=== PATIENT | male | born 1960 | race Caucasian/White ===

== ENCOUNTER 2019-05-10 08:30 | Outpatient (CLI) | payer MEDICAID, SELFPAY ==
[2019-05-10 09:01] LABS: Abs Immature Grans 0.01 k/cumm (0.0-0.09); Absolute Basophil Count 0.06 k/cumm (0.0-0.2); Absolute Eosinophil Count 0.24 k/cumm (0.0-0.7); Absolute Lymphocyte Count 1.75 k/cumm (1.2-3.4); Absolute Monocyte Count 0.51 k/cumm (0.11-0.7); Absolute Neutrophil Count 2.98 k/cumm (1.2-6.7); Basophils % 1.1; Eosinophils % 4.3; HCT 43.3 % (40.0-50.0); HGB 14.7 g/dL (13.5-17.5); Immature Grans % 0.2; Lymphocytes % 31.5; Mean Corp. HGB Concentration 33.9 g/dL (32.0-36.0); Mean Corpuscular Volume 91.4 fL (80-95); Mean Platelet Volume 9.6 fL (8.0-11.0); Monocytes % 9.2; Neutrophils % 53.7; Platelet Count 301 x1000/uL (130-400); RBC 4.74 m/cumm (4.50-6.00); RBC Distribution Width 14.1 % (11.8-14.1); White Blood Cell Count 5.55 k/cumm (4.4-10.8)
== END 2019-05-10 08:50 ==
PROVIDERS: PCP General Practice; Visit Provider Dermatology
DX: Z79.899 Other long term (current) drug therapy (principal)
CPT/HCPCS: 36415; 85025

== ENCOUNTER 2020-03-27 10:33 | Outpatient (CLI) | payer MEDICAID, SELFPAY ==
[2020-03-27 15:02] LABS: Abs Immature Grans 0.01 k/cumm (0.0-0.09); Absolute Basophil Count 0.06 k/cumm (0.0-0.2); Absolute Lymphocyte Count 1.59 k/cumm (1.2-3.4); Absolute Monocyte Count 0.53 k/cumm (0.11-0.7); Absolute Neutrophil Count 2.57 k/cumm (1.2-6.7); Basophils % 1.2; Eosinophils % 5.9; HCT 40.7 % (40.0-50.0); HGB 13.9 g/dL (13.5-17.5); Immature Grans % 0.2 %; Lymphocytes % 31.4; Mean Corp. HGB Concentration 34.2 g/dL (32.0-36.0); Mean Corpuscular Hemoglobin 31.7 pg (27.0-33.0); Mean Corpuscular Volume 92.9 fL (80-95); Mean Platelet Volume 9.4 fL (8.0-11.0); Monocytes % 10.5; Neutrophils % 50.8; Platelet Count 263 x1000/uL (130-400); RBC 4.38 m/cumm (4.50-6.00); RBC Distribution Width 12.9 % (11.8-14.1); White Blood Cell Count 5.06 k/cumm (4.4-10.8)
[2020-03-27 15:55] LABS: ALT 61 U/L (16-63); AST 32 U/L (15-37); Albumin 3.6 g/dL (3.4-5.0); Alkaline Phosphatase 96 U/L (46-116); Anion Gap 7.2 mmol/L (3-11); BUN 22 mg/dL (7-18); Bilirubin, Total 0.4 mg/dL (0.2-1.0); CO2 27.8 mmol/L (21.0-32.0); CREATININE 0.98 mg/dL (0.70-1.30); Calcium 8.6 mg/dL (8.5-10.1); Chloride 102 mmol/L (98-107); Glucose 91 mg/dL (74-106); Potassium 4.2 mmol/L (3.5-5.1); Sodium 137 mmol/L (136-145); Total Protein 6.6 g/dL (6.4-8.2)
== END 2020-03-27 10:53 ==
PROVIDERS: Visit Provider Dermatology
DX: Z79.899 Other long term (current) drug therapy (principal)
CPT/HCPCS: 36415; 80053; 85025

== ENCOUNTER 2020-05-28 17:00 | Outpatient (REF) | payer MEDICAID, SELFPAY ==
[2020-05-28 21:05] LABS: BUN 23 mg/dL (7-18); CREATININE 0.86 mg/dL (0.70-1.30); Calcium 9.1 mg/dL (8.5-10.1); Calculated LDL 138 mg/dL (<100); Chloride 103 mmol/L (98-107); Cholesterol 214 mg/dL (<200); Glucose 93 mg/dL (74-106); HDL Cholesterol 46 mg/dL (40-60); Sodium 139 mmol/L (136-145); Triglyceride 150 mg/dL (<150)
[2020-05-28 21:11] LABS: Hemoglobin A1C 5.1 % (3.8-5.6)
[2020-06-01 10:22] LABS: Hepatitis C Ab w Rflx HCV PCR Negative (Negative)
== END 2020-05-28 17:20 ==
LOC: NCHCN 17:00
PROVIDERS: PCP Family Medicine; Visit Provider Family Medicine
DX: Z13.9 Encounter for screening, unspecified (principal); I10 Essential (primary) hypertension
CPT/HCPCS: 80048; 80061; 86803; 83036

== ENCOUNTER 2020-06-02 02:20 | Outpatient (CLI) | payer MEDICAID, SELFPAY ==
[2020-06-02 08:56] LABS: HCT 43.4 % (40.0-50.0); HGB 14.6 g/dL (13.5-17.5); Mean Corp. HGB Concentration 33.6 g/dL (32.0-36.0); Mean Corpuscular Volume 92.1 fL (80-95); Mean Platelet Volume 9.4 fL (8.0-11.0); Platelet Count 326 x1000/uL (130-400); RBC 4.71 m/cumm (4.50-6.00); RBC Distribution Width 13.1 % (11.8-14.1); White Blood Cell Count 5.11 k/cumm (4.4-10.8)
[2020-06-02 10:01] LABS: ALT 51 U/L (16-63); AST 25 U/L (15-37); Albumin 4.2 g/dL (3.4-5.0); Alkaline Phosphatase 93 U/L (46-116); Bilirubin, Direct 0.14 mg/dL (0.00-0.20); Bilirubin, Total 0.6 mg/dL (0.2-1.0); Total Protein 7.2 g/dL (6.4-8.2)
[2020-06-02 18:28] LABS: PSA, Screening 0.5 ng/mL (0.0-4.5)
[2020-06-05 08:46] LABS: Testosterone, Total 370 ng/dL (240-950)
== END 2020-06-02 02:40 ==
PROVIDERS: PCP Family Medicine; Visit Provider Family Medicine
DX: E23.0 Hypopituitarism (principal); Z13.9 Encounter for screening, unspecified
CPT/HCPCS: 36415; 80076; 84153; 84403; 85027

== ENCOUNTER 2020-10-04 13:35 | Emergency (ER) | payer MEDICAID, SELFPAY ==
[2020-10-04] VITALS (10 sets, daily range): BP systolic 125–147; BP diastolic 86–102; PULSE 67–89; RESP 14–21; TEMP 36.4; O2SAT 94–97
--- NOTE | 2020-10-04 13:30 | RT.EKG_ITS ---
APPROVED REPORT Exam: Resting ECG Patient Location: E HR:73 bpm ECG Measurements Heart Rate 73 AXIS IL 207 P 29 QRSd 106 QRS 25 QT 384 T 96 QTc 423 Conclusion Sinus rhythm...normal P axis, V-rate 60- 99 Inferior infarct, acute Stemi
--- NOTE | 2020-10-04 13:45 | DI.RAD_ITS ---
EXAM: XR PORTABLE CHEST AP CLINICAL HISTORY: cp/STEMI. TECHNIQUE: 2D digital imaging was performed. COMPARISON: No exams were available for comparison FINDINGS: Chest leads in place. Heart size minimally prominent. Mediastinum is not widened. Lungs are clear. No infiltrates nor pleural effusions. No pneumothorax IMPRESSION: No acute pulmonary findings on this portable AP view of the chest. DATA REPOSITORY: RADIATION DOSE DELIVERED:
[2020-10-04] MEDS: Ondansetron 4 MG/2 ML VIAL IVP (13:59)
--- NOTE | 2020-10-04 13:59 | W.ED.GENAD ---
Discharge Plan Disposition Patient Disposition: [facility] Condition: Improving Discharge Details Clinical Impression: Acute ST elevation myocardial infarction (STEMI) of inferior wall Primary Care Provider: Gennaro Hess ED Provider: Andrew Zheng Home Meds and New Rx's Prescriptions: No Action diclofenac sodium 75 MG tablet,delayed release (DR/EC) 75 mg PO BID RF: 0 lisinopril 40 MG tablet 40 mg PO DAILY RF: 0 testosterone cyp, micro (bulk) 5 GM powder 5 gm Miscellaneous DAILY RF: 0 hydrochlorothiazide 25 MG tablet 25 mg PO DAILY RF: 0 atorvastatin 20 mg tablet 20 mg PO DAILY RF: 0 naltrexone 50 mg tablet 25 mg PO DAILY RF: 0 bupropion HCl 150 mg tablet extended release 24 hr 150 mg PO QAM RF: 0 aspirin 81 mg tablet,delayed release (DR/EC) 81 mg PO DAILY RF: 0 Medical Decision Making 60-year-old male, former smoker, positive family history of coronary artery disease, history of hypertension and hyperlipidemia. States that for approximately 1 week after walking his dog he would feel heartburn and chest pain. Resolved with rest. This morning the pain became constant while at rest, he was nauseated and vomited once. He states it feels as if a sledgehammer hit him in the sternum. Patient arrives to the ER afebrile with a blood pressure 147/88, pulse 67, 96% sat on room air. His initial EKG reveals inferior STEMI with lateral ST segment depressions. Patient placed on a crocheter hand, IV access established. Screening labs obtained. Patient had a 81 mg aspirin at home, he was given additional 162 mg as well as 2mg Morphine. Results of the labs: White count 7, hematocrit 43, platelets 299, BUN 23, creatinine 0.8, troponin 0.46 Portable CXR: No acute pulmonary process Case discussed with on-call cardiology at [facility]. Patient excepted in transfer to the service of Dr. Vicente. Will start heparin drip, administer ticagrelor as per cardioloy recommendations. Patient remained stable. Pain improved from approximately 6 out of 10 to 1 out of 10 after morphine 2 mg x 2. After discussion of transport time, [facility] [place] and requested thrombolysis with tenecteplase. Patient was consented for the procedure and he was given tenecteplase 50 mg. Lab Data Lab results reviewed: Yes I reviewed the patient's lab results. Labs: Laboratory Results - last 24 hr 10/04/20 10/04/20 13:45 13:45 WBC 7.45 RBC 4.68 Hgb 14.6 Hct 43.3 MCV 92.5 MCH 31.2 MCHC 33.7 RDW 12.8 Plt Count 299 MPV 9.5 Immature Gran % 0.4 Neutrophils % 72.7 Lymphocytes % 16.5 Monocytes % 7.2 Eosinophils % 2.3 Basophils % 0.9 Nucleated RBC % 0 Absolute Neutrophils 5.41 Absolute Lymphocytes 1.23 Absolute Monocytes 0.54 Absolute Eosinophils 0.17 Absolute Basophils 0.07 PT 9.9 INR 1.0 APTT 22.2 HPI General Mode of arrival: ambulatory. Date/Time Provider Initiated Documentation: 10/04/20 13:44. Limitations to Documentation: no limitations. Information obtained by: patient. History of Present Illness 60 year old M presents to the emergency department with the chief complaint of Chest pain, described as moderate, Quality is described as dull and constant, and is localized to the chest. Patient reports no radiation. Patient started experiencing this day(s) and it has been constant. Rest improves symptom(s), Movement worsens symptoms . Patient notes chest pain, nausea/vomiting and shortness of breath; denies syncope and weakness. Patient did receive the following treatments prior to arrival, other (81 mg aspirin at home) Related Data Home Medications Medication Instructions Recorded Confirmed diclofenac sodium 75 mg PO BID tab-cap 05/21/18 10/04/20 lisinopril 40 mg PO DAILY tab-cap 05/21/18 10/04/20 testosterone cyp, micro (bulk) 5 gm MISCELLANEOUS DAILY 05/21/18 10/04/20 hydrochlorothiazide 25 mg PO DAILY 05/23/18 10/04/20 aspirin 81 mg tablet,delayed 81 mg PO DAILY 09/29/20 10/04/20 release atorvastatin 20 mg tablet 20 mg PO DAILY 09/29/20 10/04/20 bupropion HCl 150 mg 24 hr tablet, 150 mg PO QAM 09/29/20 10/04/20 extended release naltrexone 50 mg tablet 25 mg PO DAILY tab 09/29/20 10/04/20 Allergies Allergy/AdvReac Type Severity Reaction Status Date / Time No Known Drug Allergies Allergy Unverified 10/04/20 13:45 General Stated Complaint: Chest Pain EVA: 2 Review of Systems Narrative: Had central chest pain with exertion that resolved with rest this week. Constant chest pain this morning while at rest, nauseated, vomited once. No cough. No recent travel. 8 systems reviewed and otherwise negative [facility] Medical History Alcohol use Arthritis Basal cell carcinoma BPH (benign prostatic hyperplasia) HTN (hypertension) Hyperlipidemia Hypogonadism in male Melanoma Overactive bladder Psoriasis Sensorineural hearing loss of both ears Social History Smoking/Tobacco Use Status: Former Tobacco Use Smoking risk assessment performed?: Yes Drug use: Rarely Exam Narrative Exam Narrative: GEN: awake, alert, oriented 3. Pleasant, well groomed, interactive. HEAD: Normocephalic, atraumatic ENT: Mucous membranes moist, External ear exam unremarkable EYES: PERRL, EOMI NECK: Full ROM, no JARED, no menigismus CHEST/RESP: Nontender, clear to auscultation bilateral, no wheeze/rhonchi/rales CARDIOVASCULAR: RRR, no murmur, rub georgette. 2+ Rad pulse bilateral ABDOMEN: Soft, nontender, no mass. +Bowel sounds EXT: Full ROM, no edema, no rash Neuro: Grossly normal neurologic exam, conversant, interactive. Psych: Speech fluent, thoughts congruent, affect normal Course Vital Signs Vital signs: Vital Signs Temperature 36.4 C L 10/04/20 13:40 Pulse 67 10/04/20 13:40 Respiratory Rate 16 10/04/20 13:40 Blood Pressure 147/88 H 10/04/20 13:40 Pulse Oximetry 96 10/04/20 13:40 Temperature 36.4 C L 10/04/20 13:40 Temperature Source Oral 10/04/20 13:40 Pulse 67 10/04/20 13:40 Respiratory Rate 16 10/04/20 13:40 Respiratory Effort Non-Labored 10/04/20 13:40 Blood Pressure 147/88 H 10/04/20 13:40 Blood Pressure Position Supine 10/04/20 13:40 Pulse Oximetry 96 10/04/20 13:40 Oxygen Delivery Method Room Air 10/04/20 13:40 Oxygen Flow Rate 0 10/04/20 13:40 Pain Level 7 10/04/20 13:40 Critical Care Time Critical Care Time Critical Care Time: Yes Total Critical Care Time: 30 Attestation: Review of records, beside management, discussion with managed services consultant
[2020-10-04] MEDS: Normal Saline 1,000 ML 125 ML IV (14:00)
[2020-10-04] MEDS: Aspirin 81 MG CHEW 162 MG PO (14:01)
--- NOTE | 2020-10-04 14:02 | NUR.NOTE ---
Nursing Note: pt has spoken with girlfriend, Lor who is aware of care plan and probable transfer. Pt has [employer] in ER parking lot, hospital security aware. Pt has asked fro cell phone from car- security to retrieve it and lock car. Norge will be stored in security office.
[2020-10-04 14:03] LABS: Abs Immature Grans 0.03 10^3/uL (0.0-0.06); Absolute Basophil Count 0.07 10^3/uL (0.0-0.2); Absolute Eosinophil Count 0.17 10^3/uL (0.0-0.7); Absolute Lymphocyte Count 1.23 10^3/uL (1.2-3.4); Absolute Monocyte Count 0.54 10^3/uL (0.1-0.8); Absolute Neutrophil Count 5.41 10^3/uL (1.2-6.7); Basophils % 0.9; Eosinophils % 2.3; HCT 43.3 % (40.0-50.0); HGB 14.6 g/dL (13.5-17.5); Immature Grans % 0.4; Lymphocytes % 16.5; MCH 31.2 pg (27.0-33.0); MCHC 33.7 % (32.0-36.0); MCV 92.5 fL (80-95); MPV 9.5 fL (8.0-11.0); Monocytes % 7.2; Neutrophils % 72.7; Nucleated RBC 0 %; Platelet Count 299 10^3/uL (130-400); RBC 4.68 10^6/uL (4.36-5.78); RDW 12.8 % (11.8-14.1); RDW-SD 43.4 fL; WBC 7.45 10^3/uL (4.4-10.8)
--- NOTE | 2020-10-04 14:08 | NUR.NOTE ---
radiology at bedside for portable chest x-ray:
[2020-10-04 14:11] LABS: PTT Activated 22.2 sec (21.0-27.5); Prothrombin Time 9.9 sec (9.3-11.0)
--- NOTE | 2020-10-04 14:14 | DI.VRAD_ITS ---
PROCEDURE INFORMATION: Exam: XR Chest, 1 View Exam date and time: 10/04/2020 1:48 PM Age: 60 years old Clinical indication: Chest pain TECHNIQUE: Imaging protocol: XR of the chest Views: 1 view. COMPARISON: No relevant prior studies available. FINDINGS: Lungs: Right lung volume is low with elevation of right hemidiaphragm. There is mild chronic reticular interstitial thickening. There is no focal consolidation or pleural effusion. Pleural space: Unremarkable. No pleural effusion. No pneumothorax. Heart/Mediastinum: Unremarkable. No cardiomegaly. Bones/joints: Unremarkable. IMPRESSION: No acute pulmonary process. Dictated and Authenticated by: Marcus Dominguez MD. Ordering:ROBYN Morales MD
[2020-10-04 14:15] LABS: ALT 80 U/L (16-63); AST 38 U/L (15-37); Albumin 4.3 g/dL (3.4-5.0); Alkaline Phosphatase 100 U/L (46-116); Anion Gap 6.2 mmol/L (3-11); BUN 20 mg/dL (7-18); Bilirubin, Total 0.4 mg/dL (0.2-1.0); CO2 30.8 mmol/L (21.0-32.0); CREATININE 1.16 mg/dL (0.70-1.30); Calcium 8.9 mg/dL (8.5-10.1); Chloride 101 mmol/L (98-107); Glucose 116 mg/dL (74-106); Magnesium 2.2 mg/dL (1.8-2.4); Potassium 3.7 mmol/L (3.5-5.1); Sodium 138 mmol/L (136-145); Total Protein 7.6 g/dL (6.4-8.2)
--- NOTE | 2020-10-04 14:15 | NUR.NOTE ---
Nursing Note: Pt's keys in security office. Cell phone was not located by security, pt aware. Pt's wallet (brown, with $1 ho, several medical and credit cards) bagged with clothing and sent with pt. Pt retains his black colored watch on left wrist. Sneakers bagged and sent as well.
[2020-10-04 14:16] LABS: Troponin I 0.46 ng/mL (<0.06)
[2020-10-04] MEDS: Ticagrelor 90 MG TAB 180 MG PO (14:19)
--- NOTE | 2020-10-04 14:27 | NUR.NOTE ---
pt awake and alert. vs stable. 1/10 on pain scale:
[2020-10-04] MEDS: Tenecteplase 50 MG KIT IVP (14:40)
[2020-10-04 14:43] LABS: NT-proBNP 106 pg/mL (<300)
== END 2020-10-04 14:52 | disposition short-term general hospital (02) ==
PROVIDERS: Emergency Provider Emergency Medicine; PCP Family Medicine
DX: I21.19 ST elevation (STEMI) myocardial infarction involving other coronary artery of inferior wall (principal); R11.2 Nausea with vomiting, unspecified; Z82.49 Family history of ischemic heart disease and other diseases of the circulatory system; I10 Essential (primary) hypertension; Z87.891 Personal history of nicotine dependence
CPT/HCPCS: 80053; 93005; 96361; 96365; 96375; 96376; 99291; 71045; 83735; 83880; 84484; 85025; 85610; 85730; 93010; J2405; J3101; J3490

== ENCOUNTER 2021-01-04 15:01 | Outpatient (REF) | payer MEDICAID, SELFPAY ==
[2021-01-04 16:22] LABS: Calculated LDL 39 mg/dL (<100); Cholesterol 107 mg/dL (<200); HDL Cholesterol 45 mg/dL (40-60); Triglyceride 115 mg/dL (<150)
== END 2021-01-04 15:02 | disposition home or self-care (01) ==
LOC: NCHCN 15:01
PROVIDERS: PCP Family Medicine; Visit Provider Family Medicine
DX: E78.5 Hyperlipidemia, unspecified (principal)
CPT/HCPCS: 80061

== ENCOUNTER 2021-09-30 12:00 | Day surgery (SDC) | payer MEDICAID, SELFPAY ==
[2021-09-30] VITALS (22 sets, daily range): BP systolic 85–109; BP diastolic 45–64; PULSE 55–77; RESP 10–23; TEMP 36.1–36.9; O2SAT 94–99; BMI 29.4
--- NOTE | 2021-09-30 12:09 | ED.GENADUL_ITS ---
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 Access called to state that there was a patient in a car with uncontrolled bleeding. Nursing removed the patient from the vehicle and placed on a stretcher and noted to have a right leg wound. Right sneaker and floor of car noted to be saturated with blood. Patient denies any other injuries other than right leg. Unsure of his tetanus status. Tourniquet applied at bedside by nursing as there was report of pulsatile bleeding from patient. His vitals are within normal limits. Removal of dressing while tourniquet in place noted extensive tissue injury down to subcutaneous tissue and potentially muscle but no pulsatile bleeding. Portions of tendon L distal medial leg visible and appear intact. He has normal plantar and dorsiflexion of the foot. He has normal right DP and PT pulses. He has no obvious contamination or obvious bony injury on exam. Will obtain hemoglobin and refer for right tib-fib x-ray. Will give a dose of IV tylenol. Hemoglobin 12. X-ray notes soft tissue injury but no underlying bony injury. Case discussed with orthopedics Dr. Anderson who reviewed imaging and as there is no evidence of bony injury, no orthopedic intervention indicated - recommends discussion with general surgery as pt may need a wound vac. Case discussed with Dr. Early who will take patient to the OR for washout with plan for admission for dressing changes and likely plan for wound VAC placement. Patient dose of penicillin G potassium ordered for coverage for Clostridium as potential for contaminated wound. Patient is agreeable with plan. Pt had soft BP's (90s/50s) prior to transfer to OR. He was given morphine for pain which may have been contributing. His bleeding was controlled and dressing remained clean and dry. Medical Records Medical records reviewed: Yes I reviewed the patient's medical records. Imaging Data Radiologic Study: Radiologist's impression: XR Right Tibia and Fibula Exam date and time: 09/30/2021 12:25 PM Age: 61 years old Clinical indication: Injury or trauma; Other: Tractor injury; Laceration; Lower leg; Foreign body involvement not specified; Prior surgery; Surgery date: 6+ months; Surgery type: S/P tibial FX with 3 screws putin. ; Patient HX: S/P metal bucket of tractor ran into leg causing a tear in his leg. Right in the area of his surgery. TECHNIQUE: Imaging protocol: XR Right tibia and fibula. Views: 2 views. COMPARISON: No relevant images were readily available for comparison purposes. FINDINGS: Bones/joints: Fixation screws are seen within the mid tibia in the region of an old fracture. There is also a chronic appearing fracture of the mid fibula. No acute fracture or dislocation. Soft tissues: Subcutaneous emphysema and soft tissue irregularity likely traumatic in nature. IMPRESSION: Evidence of soft tissue injury without underlying bony involvement. Lab Data Lab results reviewed: Yes I reviewed the patient's lab results. Labs: Laboratory Tests Range/Units 09/30/21 09/30/21 09/30/21 12:05 12:05 12:05 WBC (4.4-10.8) 10^3/uL 6.54 RBC (4.36-5.78) 10^6/uL 4.01 L Hgb (13.5-17.5) g/dL 12.2 L Hct (40.0-50.0) % 37.7 L MCV (80-95) fL 94.0 MCH (27.0-33.0) pg 30.4 MCHC (32.0-36.0) % 32.4 RDW (11.8-14.1) % 13.8 Plt Count (130-400) 10^3/uL 292 MPV (8.0-11.0) fL 9.4 Immature Gran % 0.3 Neutrophils % 58.5 Lymphocytes % 27.5 Monocytes % 7.8 Eosinophils % 5.0 Basophils % 0.9 Nucleated RBC % % 0 Absolute Neutrophils (1.2-6.7) 10^3/uL 3.82 Absolute Lymphocytes (1.2-3.4) 10^3/uL 1.80 Absolute Monocytes (0.1-0.8) 10^3/uL 0.51 Absolute Eosinophils (0.0-0.7) 10^3/uL 0.33 Absolute Basophils (0.0-0.2) 10^3/uL 0.06 Sodium (136-145) mmol/L 139 Potassium (3.5-5.1) mmol/L 4.0 Chloride (98-107) mmol/L 103 Carbon Dioxide (21.0-32.0) mmol/L 27.7 Anion Gap (3-11) mmol/L 8.3 BUN (7-18) mg/dL 29 H Creatinine (0.70-1.30) mg/dL 0.9 Estimated GFR/1.73 m2 (mL/min/1.73m2) >= 60.00 Glucose (74-106) mg/dL 145 H Calcium (8.5-10.1) mg/dL 8.6 COVID-19 Source SARS-CoV-2 (PCR) (Negative) Patient ABO/Rh O Positive Antibody Screen NEGATIVE Range/Units 09/30/21 14:07 WBC (4.4-10.8) 10^3/uL RBC (4.36-5.78) 10^6/uL Hgb (13.5-17.5) g/dL Hct (40.0-50.0) % MCV (80-95) fL MCH (27.0-33.0) pg MCHC (32.0-36.0) % RDW (11.8-14.1) % Plt Count (130-400) 10^3/uL MPV (8.0-11.0) fL Immature Gran % Neutrophils % Lymphocytes % Monocytes % Eosinophils % Basophils % Nucleated RBC % % Absolute Neutrophils (1.2-6.7) 10^3/uL Absolute Lymphocytes (1.2-3.4) 10^3/uL Absolute Monocytes (0.1-0.8) 10^3/uL Absolute Eosinophils (0.0-0.7) 10^3/uL Absolute Basophils (0.0-0.2) 10^3/uL Sodium (136-145) mmol/L Potassium (3.5-5.1) mmol/L Chloride (98-107) mmol/L Carbon Dioxide (21.0-32.0) mmol/L Anion Gap (3-11) mmol/L BUN (7-18) mg/dL Creatinine (0.70-1.30) mg/dL Estimated GFR/1.73 m2 (mL/min/1.73m2) Glucose (74-106) mg/dL Calcium (8.5-10.1) mg/dL COVID-19 Source Nasal/Nares SARS-CoV-2 (PCR) (Negative) Negative Patient ABO/Rh Antibody Screen HPI General Mode of arrival: wheelchair . Date/Time Provider Initiated Documentation: 09/30/21 12:08 . Limitations to Documentation: no limitations . Information obtained by: patient . HPI Narrative: Patient is a 61-year-old male w/ a h/o R tib/fib ORIF in the who presents with right leg injury that was sustained when hit with the moving and of a tractor while he was walking on the ground prior to arrival. Patient states he was walking and helping out a friend remove brush when moving a tractor came towards him and he tried to jump out of the way and a metal edge caught his right lower leg. He says there was a large amount of blood loss at the scene and in the car on the way here. Patient denies any other injuries. He is unsure of his tetanus status. Related Data Home Medications Medication Instructions Recorded Confirmed lisinopril 40 mg PO DAILY tab-cap 05/21/18 09/30/21 aspirin 81 mg tablet,delayed 81 mg PO DAILY 09/29/20 09/30/21 release atorvastatin 20 mg tablet 80 mg PO DAILY tab 12/18/20 09/30/21 metoprolol succinate 25 mg 25 mg PO DAILY #60 tab 12/18/20 09/30/21 tablet,extended release 24 hr ticagrelor 90 mg tablet 90 mg PO BID #180 tab 01/04/21 09/30/21 acetaminophen 325 mg capsule 975 mg PO ONCE PRN cap 03/25/21 06/17/21 cephalexin 500 mg PO Q12H 14 Days #28 tab 09/30/21 clindamycin HCl [Cleocin HCl] 300 mg PO Q6H 14 Days #56 cap 09/30/21 tramadol [Ultram] 50 mg PO Q6H PRN #14 tab 09/30/21 Previous Rx's Medication Instructions Recorded metoprolol succinate 25 mg 25 mg PO DAILY #60 tab 12/18/20 tablet,extended release 24 hr ticagrelor 90 mg tablet 90 mg PO BID #180 tab 01/04/21 cephalexin 500 mg PO Q12H 14 Days #28 tab 09/30/21 clindamycin HCl [Cleocin HCl] 300 mg PO Q6H 14 Days #56 cap 09/30/21 tramadol [Ultram] 50 mg PO Q6H PRN #14 tab 09/30/21 Allergies Allergy/AdvReac Type Severity Reaction Status Date / Time No Known Drug Allergies Allergy Unverified 03/25/21 09:39 General Stated Complaint: Laceration EVA: 3 Review of Systems All systems reviewed & are unremarkable except as noted in HPI and below Constitutional Constitutional: Reports as per HPI, Denies chills and Denies fever(s) Eyes Eyes: Denies blurry vision ENT Ears, Nose, Mouth, and Throat: Denies dizziness, Denies sore throat and Denies throat swelling Cardiovascular Cardiovascular: Denies chest pain and Denies dyspnea Respiratory Respiratory: Denies cough and Denies dyspnea Gastrointestinal Gastrointestinal: Denies abdominal pain, Denies diarrhea and Denies vomiting Genitourinary Genitourinary: Denies hematuria and Denies dysuria Musculoskeletal Musculoskeletal: Denies back pain and Denies numbness Integumentary/Breasts Skin/Breast: Denies lesions and Denies rash Neurologic Neurologic: Denies dizziness, Denies localized weakness and Denies numbness Allergic/Immunologic Allergic/Immunologic: Denies throat swelling PFSH Active Problem List Traumatic open wound of right lower leg (Acute) Sensorineural hearing loss of both ears (Acute) Medical History Alcohol use Arthritis Basal cell carcinoma BPH (benign prostatic hyperplasia) HTN (hypertension) Hyperlipidemia Hypogonadism in male Melanoma Overactive bladder Psoriasis ST elevation myocardial infarction (STEMI) of inferior wall Surgical History History of coronary artery stent placement Social History Smoking/Tobacco Use Status: Former Tobacco Use Smoking risk assessment performed?: Yes Alcohol Intake: current Alcohol Intake frequency: holidays/special occasions only Drug use: Never Substance use type: does not use What type of physical activity do you participate in: walking and weight lifting Duration: 60-90 minutes/day Frequency: daily Do you feel safe at home: Yes Do you feel safe in your relationship?: Yes Exam Const General: cooperative and no acute distress HENMT Head: normal to inspection Face and sinus: normal facial exam Eyes General: appearance normal, both eyes and all related structures Neck Neck: normal visual inspection and No submandibular swelling Lymphatic: no lymphadenopathy noted Chest Chest: normal inspection of the chest and no tenderness Resp Effort & Inspection: normal respiratory effort and able to speak in complete sentences Auscultation: clear to auscultation bilaterally Cardio Rate: regular rate Rhythm: regular rhythm GI Inspection: normal to inspection Palpation: soft, not firm, not rigid and nontender Auscultation: normal bowel sounds Skin General skin exam: no rashes or lesions noted Neuro General: patient alert, patient awake and patient oriented x3 Cognition: normal cognition Speech: speech normal Motor: muscle tone normal throughout Sensory Exam: no sensory deficits noted Extrem Ankle/foot/toe images: 1. Large gaping wound approximately 15x8cm on left anteromedial lower leg extending deep with subcutaneous tissue and potentially muscle and fascia. No pulsatile bleeding noted while tourniquet applied. Psych Appearance: grossly normal Mental Status: mental status grossly normal Speech and Movement: speech and movement normal Affect: normal affect Course Vital Signs Vital signs: Vital Signs Temperature 97.0 F L 09/30/21 12:01 Pulse 75 09/30/21 12:01 Respiratory Rate 18 09/30/21 12:01 Blood Pressure 109/64 09/30/21 12:01 Pulse Oximetry 99 09/30/21 12:01 Temperature 97.0 F L 09/30/21 12:01 Temperature Source Temporal Artery Scan 09/30/21 12:01 Pulse 75 09/30/21 12:01 Respiratory Rate 18 09/30/21 12:01 Blood Pressure 109/64 09/30/21 12:01 Blood Pressure Position Sitting 09/30/21 12:01 Pulse Oximetry 99 09/30/21 12:01 Oxygen Delivery Method Room Air 09/30/21 12:01 Oxygen Flow Rate 0 09/30/21 12:01 Pain Level 10 09/30/21 12:01
[2021-09-30 12:30] LABS: Abs Immature Grans 0.02 10^3/uL (0.0-0.06); Absolute Basophil Count 0.06 10^3/uL (0.0-0.2); Absolute Eosinophil Count 0.33 10^3/uL (0.0-0.7); Absolute Monocyte Count 0.51 10^3/uL (0.1-0.8); Absolute Neutrophil Count 3.82 10^3/uL (1.2-6.7); Basophils % 0.9; HCT 37.7 % (40.0-50.0); HGB 12.2 g/dL (13.5-17.5); Immature Grans % 0.3; Lymphocytes % 27.5; MCH 30.4 pg (27.0-33.0); MCHC 32.4 % (32.0-36.0); MPV 9.4 fL (8.0-11.0); Monocytes % 7.8; Neutrophils % 58.5; Nucleated RBC 0 %; Platelet Count 292 10^3/uL (130-400); RBC 4.01 10^6/uL (4.36-5.78); RDW 13.8 % (11.8-14.1); RDW-SD 47.8 fL; WBC 6.54 10^3/uL (4.4-10.8)
[2021-09-30 12:34] LABS: Anion Gap 8.3 mmol/L (3-11); BUN 29 mg/dL (7-18); CO2 27.7 mmol/L (21.0-32.0); CREATININE 0.9 mg/dL (0.70-1.30); Calcium 8.6 mg/dL (8.5-10.1); Chloride 103 mmol/L (98-107); Glucose 145 mg/dL (74-106); Sodium 139 mmol/L (136-145)
[2021-09-30] MEDS: Normal Saline 1,000 ML 1000 ML IV (12:40)
--- NOTE | 2021-09-30 12:45 | DI.RAD_ITS ---
Exam(s) XR TIB/FIB RT EXAM: XR TIB/FIB RT CLINICAL HISTORY: s/p metal tractor into R leg. TECHNIQUE: 2D digital imaging was performed. COMPARISON: CR RIGHT TIB/FIB from 03/11/2011 CR RIGHT TIB/FIB from 03/11/2011 CR LEFT KNEE 3 VIEW COMPLETE from 04/10/2017 CR LEFT KNEE 3 VIEW COMPLETE from 04/10/2017 FINDINGS: BONES: No acute fracture is present. Screws in distal 3rd of tibia, unchanged from prior. Mild defo rmity of adjacent region of the fibula, old healed fracture. No bony destructive lesion is seen. Deg enerative changes are noted at the knee. SOFT TISSUE: Posterior soft tissue laceration. No foreign body. IMPRESSION: Soft tissue laceration. No evidence of fracture. DATA REPOSITORY: RADIATION DOSE DELIVERED:
[2021-09-30] MEDS: ACETAMINOPHEN 1,000 MG/100 ML BTL 400 MG IVPB (13:01)
--- NOTE | 2021-09-30 13:24 | DI.VRAD_ITS ---
PROCEDURE INFORMATION: Exam: XR Right Tibia and Fibula Exam date and time: 09/30/2021 12:25 PM Age: 61 years old Clinical indication: Injury or trauma; Other: Tractor injury; Laceration; Lower leg; Foreign body involvement not specified; Prior surgery; Surgery date: 6+ months; Surgery type: S/P tibial FX with 3 screws putin. ; Patient HX: S/P metal bucket of tractor ran into leg causing a tear in his leg. Right in the area of his surgery. TECHNIQUE: Imaging protocol: XR Right tibia and fibula. Views: 2 views. COMPARISON: No relevant images were readily available for comparison purposes. FINDINGS: Bones/joints: Fixation screws are seen within the mid tibia in the region of an old fracture. There is also a chronic appearing fracture of the mid fibula. No acute fracture or dislocation. Soft tissues: Subcutaneous emphysema and soft tissue irregularity likely traumatic in nature. IMPRESSION: Evidence of soft tissue injury without underlying bony involvement. Dictated and Authenticated by: Tuan Novak MD. Ordering:LUIS M Marr MD
[2021-09-30 14:18] LABS: Source Nasal/Nares
--- NOTE | 2021-09-30 14:19 | W.PREOPHP ---
Date of service: 09/30/21 Time of Service: 14:19 Assessment and Plan Assessment and plan (1) Traumatic open wound of right lower leg: Status: Acute Assessment and plan: Mr. Nicholas is a pleasant 61 year old male with a traumatic laceration of his right medial lower extremity. There is muscle exposed and tendon. Xray shows 3 screws and no fractures. We discussed wash out of the wound with possible closure of some of the wound. He will most likely still have an open wound and will need daily dressing changes. We will give him antibiotics for 14 days to cover skin bacteria as well as clostredium, Will see if we can set up home health for him so he can have help with dressing changes as he lives alone. Risk, benefits and complications were reviewed with him and he wished to proceed. No guarantees were given or implied. Qualifiers: Encounter type: initial encounter Qualified Code(s): S81.801A - Unspecified open wound, right lower leg, initial encounter History of Present Illness Consults Consult date: 09/30/21 Requesting physician: Justa Palomares Narrative: Mr Nicholas is a pleasant 61 year old male who was helping out a friend out in the [facility] when the tractor started to role. He tried to junp out of the way but was not fast enough and his right lower extremity was slized open by a hook on the front railroad car loader. He had an injury to that leg when he was a kid and had 3 screws put in and had a skin graft placed. There was apparently a lot of blood in the car when the ER nurse went to help him out of the car. He has not had a lot of bleeding in the ER. He is on Ticagrelor and aspirin for an VT he had 1 year ago. He also has a history of a heart stent. Xray of his lower extremity did not show a fracture. [facility] was consulted who refused the case and said it was just a wound issue and to call general surgery. Review of Systems Constitutional Constitutional: Denies anorexia, Denies fatigue, Denies fever(s) and Denies headache(s) Eyes Eyes: Denies change in vision ENT Ears, Nose, Mouth, and Throat: Denies change in voice, Denies dysphagia, Denies headache(s) and Denies hoarseness Cardiovascular Cardiovascular: Reports as per HPI, Denies chest pain, Denies irregular heart rhythm, Denies palpitations and Denies dyspnea Respiratory Respiratory: Denies cough and Denies dyspnea Gastrointestinal Gastrointestinal: Reports system reviewed and no additional complaints, except as documented and Denies dysphagia Genitourinary Genitourinary: Reports system reviewed and no additional complaints, except as documented Musculoskeletal Musculoskeletal: Reports as per HPI Integumentary/Breasts Skin/Breast: Reports system reviewed and no additional complaints, except as documented Neurologic Neurologic: Reports system reviewed and no additional complaints, except as documented and Denies headache(s) Psychiatric Psychiatric: Reports system reviewed and no additional complaints, except as documented Endocrine Endocrine: Reports system reviewed and no additional complaints, except as documented, Denies fatigue and Denies palpitations [facility] Active Problem List Traumatic open wound of right lower leg (Acute) Sensorineural hearing loss of both ears (Acute) Medical History Alcohol use Arthritis Basal cell carcinoma BPH (benign prostatic hyperplasia) HTN (hypertension) Hyperlipidemia Hypogonadism in male Melanoma Overactive bladder Psoriasis ST elevation myocardial infarction (STEMI) of inferior wall Surgical History History of coronary artery stent placement Social History Smoking/Tobacco Use Status: Former Tobacco Use Smoking risk assessment performed?: Yes Alcohol Intake: current Alcohol Intake frequency: holidays/special occasions only Drug use: Never Substance use type: does not use What type of physical activity do you participate in: walking and weight lifting Duration: 60-90 minutes/day Frequency: daily Do you feel safe at home: Yes Do you feel safe in your relationship?: Yes Meds Allergies and Home Medications Allergies Allergy/AdvReac Type Severity Reaction Status Date / Time No Known Drug Allergies Allergy Unverified 03/25/21 09:39 Home Medications Medication Instructions Recorded Confirmed Type lisinopril 40 mg PO DAILY tab-cap 05/21/18 09/30/21 History aspirin 81 mg tablet,delayed 81 mg PO DAILY 09/29/20 09/30/21 History release atorvastatin 20 mg tablet 80 mg PO DAILY tab 12/18/20 09/30/21 History metoprolol succinate 25 mg 25 mg PO DAILY #60 tab 12/18/20 09/30/21 Rx tablet,extended release 24 hr ticagrelor 90 mg tablet 90 mg PO BID #180 tab 01/04/21 09/30/21 Rx acetaminophen 325 mg capsule 975 mg PO ONCE PRN cap 03/25/21 06/17/21 History Exam Const General: cooperative, comfortable and no acute distress Orientation: alert and oriented x3 HENMT Head: normocephalic and atraumatic Resp Effort & Inspection: normal respiratory effort Auscultation: clear to auscultation bilaterally Cardio Rate: regular rate Rhythm: regular rhythm Heart Sounds: no gallops, no murmurs and no rubs Extrem Right lower extremity: full ROM, normal capillary refill and lower leg Details: laceration Left lower extremity: normal to inspection, full ROM and normal capillary refill Ankle/foot/toe images: 1. large laceration with exposed muscle. Other: intact extension and flexion of his foot. Normal sensation to touch Results Labs Result diagrams: 09/30/21 12:05 09/30/21 12:05 Labs: Laboratory Results - last 24 hr 09/30/21 09/30/21 09/30/21 12:05 12:05 12:05 WBC 6.54 RBC 4.01 L Hgb 12.2 L Hct 37.7 L MCV 94.0 MCH 30.4 MCHC 32.4 RDW 13.8 Plt Count 292 MPV 9.4 Immature Gran % 0.3 Neutrophils % 58.5 Lymphocytes % 27.5 Monocytes % 7.8 Eosinophils % 5.0 Basophils % 0.9 Nucleated RBC % 0 Absolute Neutrophils 3.82 Absolute Lymphocytes 1.80 Absolute Monocytes 0.51 Absolute Eosinophils 0.33 Absolute Basophils 0.06 Sodium 139 Potassium 4.0 Chloride 103 Carbon Dioxide 27.7 Anion Gap 8.3 BUN 29 H Creatinine 0.9 Estimated GFR/1.73 m2 >= 60.00 Glucose 145 H Calcium 8.6 COVID-19 Source Patient ABO/Rh O Positive Antibody Screen NEGATIVE 09/30/21 14:07 WBC RBC Hgb Hct MCV MCH MCHC RDW Plt Count MPV Immature Gran % Neutrophils % Lymphocytes % Monocytes % Eosinophils % Basophils % Nucleated RBC % Absolute Neutrophils Absolute Lymphocytes Absolute Monocytes Absolute Eosinophils Absolute Basophils Sodium Potassium Chloride Carbon Dioxide Anion Gap BUN Creatinine Estimated GFR/1.73 m2 Glucose Calcium COVID-19 Source Nasal/Nares Patient ABO/Rh Antibody Screen Last Vital Signs Temp 97.0 F L 09/30/21 12:01 Pulse 62 09/30/21 14:00 Resp 15 09/30/21 14:10 BP 98/57 L 09/30/21 14:00 Pulse Ox 95 09/30/21 14:10
--- NOTE | 2021-09-30 14:20 | ANES.PREOP_ITS ---
General Info Date of Service Date Performed: 09/30/21 Height: 5 ft 10 in Weight: 92.986 kg Body Mass Index (BMI): 29.4 Surgical Procedure: Operation Date: 09/30/21 14:00 Proposed Procedures Side Surgeon p Debridement Right Francesca Early MD Meds Allergies and Home Medications Allergies Allergy/AdvReac Type Severity Reaction Status Date / Time No Known Drug Allergies Allergy Unverified 03/25/21 09:39 Home Medication Medication Instructions Recorded lisinopril 40 mg PO DAILY tab-cap 05/21/18 aspirin 81 mg tablet,delayed 81 mg PO DAILY 09/29/20 release atorvastatin 20 mg tablet 80 mg PO DAILY tab 12/18/20 metoprolol succinate 25 mg 25 mg PO DAILY #60 tab 12/18/20 tablet,extended release 24 hr ticagrelor 90 mg tablet 90 mg PO BID #180 tab 01/04/21 acetaminophen 325 mg capsule 975 mg PO ONCE PRN cap 03/25/21 PFS Active Problems Active Problems: Problem Status Onset Code Sensorineural hearing loss of both ears H90.3 Medical History Active Problem List Traumatic open wound of right lower leg (Acute) Sensorineural hearing loss of both ears (Acute) Medical History Alcohol use Arthritis Basal cell carcinoma BPH (benign prostatic hyperplasia) HTN (hypertension) Hyperlipidemia Hypogonadism in male Melanoma Overactive bladder Psoriasis ST elevation myocardial infarction (STEMI) of inferior wall Surgical History Surgical History History of coronary artery stent placement Tobacco Smoking/Tobacco Use Status: Former Tobacco Use Alcohol Alcohol Intake: current Alcohol intake frequency: holidays/special occasions only Substance Use Substance use: Never Substance use type: does not use Vital Signs and Lab Results Vital Signs Most Recent Vital Signs in EMR: Most Recent Vital Signs Temp Pulse Resp BP Pulse Ox 36.1 C L 62 15 98/57 L 95 09/30/21 12:01 09/30/21 14:00 09/30/21 14:10 09/30/21 14:00 09/30/21 14:10 Lab Results Result Diagrams: 09/30/21 12:05 09/30/21 12:05 Blood Type / Crossmatch: Patient ABO/Rh O Positive 09/30/21 12:09/30/21 Antibody Screen NEGATIVE 09/30/21 12:09/30/21 Complete Blood Count: White Blood Count 6.54 10^3/uL (4.4-10.8) 09/30/21 12:05 09/30/21 Red Blood Count 4.01 10^6/uL (4.36-5.78) L 09/30/21 12:05 09/30/21 Hemoglobin 12.2 g/dL (13.5-17.5) L 09/30/21 12:05 09/30/21 Hematocrit 37.7 % (40.0-50.0) L 09/30/21 12:05 09/30/21 Platelet Count 292 10^3/uL (130-400) 09/30/21 12:05 09/30/21 Complete Metabolic Panel: Sodium Level 139 mmol/L (136-145) 09/30/21 12:05 09/30/21 Potassium Level 4.0 mmol/L (3.5-5.1) 09/30/21 12:05 09/30/21 Chloride Level 103 mmol/L (98-107) 09/30/21 12:05 09/30/21 Carbon Dioxide Level 27.7 mmol/L (21.0-32.0) 09/30/21 12:05 09/30/21 Blood Urea Nitrogen 29 mg/dL (7-18) H 09/30/21 12:05 09/30/21 Creatinine 0.9 mg/dL (0.70-1.30) 09/30/21 12:05 09/30/21 Estimated GFR/1.73 m2 >= 60.00 (mL/min/1.73m2) 09/30/21 12:09/30/21 Calcium Level 8.6 mg/dL (8.5-10.1) 09/30/21 12:05 09/30/21 Glucose Level 145 mg/dL (74-106) H 09/30/21 12:05 09/30/21 Liver Function Panel: No Data to Display Coagulation Panel: No Data to Display Cardiac Panel: No Data to Display Arterial Blood Gas: No Data to Display Venous Blood Gas: No Data to Display Pancreas Panel: No Data to Display Thyroid Panel: No Data to Display Infectious Disease: Coronavirus (COVID-19)(PCR) Pending 09/30/21 14:07 09/30/21 Coronavirus 2019 Source Nasal/Nares 09/30/21 14:07 09/30/21 Blood Cultures: No Data to Display Toxicology Panel: 2 No Data to Display Imaging and Studies Imaging and Studies EKG Summary: DATE/TIME OF SERVICE: 10/04/20 1344 Conclusion Sinus rhythm...normal P axis, V-rate 60- 99 Inferior infarct, acute Stemi Conclusion Sinus rhythm...normal P axis, V-rate 60- 99 Inferior infarct, acute Stemi I have reviewed and I agree with the emergency room physician???s ECG interpretation. Echocardiogram Summary: 10/05/20: [facility] [place]: EF 55%, Normal Valves Cardiac Catheterization Summary: 10/04/20: [facility] [place]: One vessel RCA with stent placed. Anesthesia Assessment and Plan Anesthesia History Personal History: No History of Anesthesia Complications Family History: No Family History of Anesthesia Complications Exercise Tolerance Exercise Tolerance: Metabolic Equivalents>4 Pertinent Negatives Pertinent Negatives: No Symptoms of GERD and No Major Pulmonary Symptoms or Complaints Cardiac & Pulmonary Exam Cardiac Exam: Normal S1/S2 Heart Sounds Pulmonary Exam: Clear Bilateral Breath Sounds Implantable Cardiac Device Does patient have a Pacemaker or an ICD?: No Airway Exam Known Difficult Airway: No Mallampati Class: 1 Mouth Opening: Normal (> 3cm) Thyromental Distance: Greater than 3 cm Neck Range of Motion: Full ROM Neck Circumference: Normal Teeth Condition: Normal Dentition and Removable Dentures/Plates Lower ASA Classification ASA Score: ASA 3 Emergency Case?: No NPO Status NPO Status: NPO Clears >2 hours, Solids >8 hours Anesthesia Plan Resuscitation Status: Full Code Anesthesia Technique: General Anesthesia Airway Planned: Natural Airway Monitors Used: Standard Monitors
--- NOTE | 2021-09-30 15:21 | PDOC.HHF2F_ITS ---
Home Health Certification Home Health Certification: 1. Encounter Date and Reason I certify that Ravi Nicholas was seen by Francesca Early MD on 09/30/21 and that I had a [id number] encounter with this patient that meets the physician face to face encounter requirements. 2. Clinical Findings Supporting Skilled Need and Homebound Status I certify that home health services are medically necessary, include either intermittent longterm and/or physical/speech therapy, and that this patient is homebound in that absences from the home require considerable and taxing effort and are infrequent or of short duration, or are attributable to the need to receive medical care. [X] (a) Attached documentation from encounter provides clinical findings supporting skilled need and homebound status (including what assistance patient requires to leave the home). The encounter with the patient was in whole, or in part, for the following medical condition, which is the primary reason for home health care: Long Term: Large wound on right lower extremity that will need daily dressing changes. Wet to dry dressing changes daily. Cover with ABD, Kerlix and Vin wrap. Physical Therapy: Speech Therapy: Homebound: Patient is homebound and cant drive at this time 3. Certification and Authentication I certify that I composed the above information based on my clinical judgement relating to this patient's medical condition and, if applicable, clinical findings communicated to me by the NPP or inpatient physician who performed the Home Health Referral. All further orders will be obtained through Juan Early MD
[2021-09-30 15:48] LABS: COVID-19 PCR Negative (Negative)
--- NOTE | 2021-09-30 17:15 | W.PM.DSUDISC ---
Discharge Plan Disposition Patient Disposition: HOME W/HOME HEALTH SERVICE Condition: Stable Discharge Details Reason For Visit: Leg Wound Attending Provider: Francesca Early Primary Care Provider: Gennaro Hess Home Meds and New Rx's Prescriptions: New tramadol [Ultram] 50 mg tablet 50 mg PO Q6H PRNQty: 14 RF: 0 cephalexin 500 mg tablet 500 mg PO Q12H 14 Days Qty: 28 RF: 0 clindamycin HCl [Cleocin HCl] 300 mg capsule 300 mg PO Q6H 14 Days Qty: 56 RF: 0 Continued atorvastatin 20 mg tablet 80 mg PO DAILY RF: 0 metoprolol succinate 25 mg tablet extended release 24 hr 25 mg PO DAILY Qty: 60 RF: 6 acetaminophen 325 mg capsule 975 mg PO ONCE PRNRF: 0 lisinopril 40 MG tablet 40 mg PO DAILY RF: 0 aspirin 81 mg tablet,delayed release (DR/EC) 81 mg PO DAILY RF: 0 Brilinta 90 mg tablet 90 mg PO BID Qty: 180 RF: 3 Discharge Instructions Additional Instructions: Activity at Home after surgery: 1. Toe touch on the right side. 2. When sitting please elevate your right leg to decrease swelling Diet, Nutrition, & wound healin. Avoid alcohol until after you are recovered from your surgery and you are done taking the antibiotics 2. Make sure to eat plenty of lean protein (meat, fish, eggs, cottage cheese, beans) 3. Eat a variety of fruits and vegetables. Eat plenty of high fiber foods to avoid constipation. 4. Drink plenty of liquids to stay hydrated and avoid constipation Pain Medications: 1. Tylenol 650mg every 6 hours as needed 2. If a narcotic has been prescribed take as directed only for breakthrough pain Other: Please wait to restart the Ticagrelor until tomorrow For Constipation: 1. Take Milk of Magnesia or MiraLax as needed for constipation Other: 1. You may shower daily. Do not scrub the incisions 2. Use the plastic boot to cover the dressing 3. You may alternate ice and heat as needed for pain and swelling Other Services that may have been ordered: 0 Home Health- to help with dressing changes has been ordered and they should see you tomorrow Please call our office if you develop: 1. Fevers >101.5 2. Nausea or Vomiting 3. Worsening pain 4. Redness and thick discharge from the wounds If after hours please call the Hospital at and ask to speak to the on-call surgeon Referrals: Tayler Hood DO [OSTEOPATHIC DOCTOR] - 10/04/21 10:00 am Equipment/Supplies: Partial Weight Bearing Crutches Activity:: Elevate Remove Dressings/Wound Care:: Do Not Remove Shower/Bathe:: Cover Diet:: As Tolerated Discharge Orders Discharge Orders: Discharge Order (Routine); Ordered 09/30/21 Ordered By: Francesca Early DS: Diagnosis Discharge Diagnosis (1) Traumatic open wound of right lower leg: Status: Acute
[2021-09-30] MEDS: traMADol 50 MG TAB PO (17:53)
--- NOTE | 2021-09-30 19:15 | W.ANESPOSTOP ---
Postoperative Evaluation Date, Time and Location Date Performed: 09/30/21 Time Performed: 18:09 Patient Location: Med/Surg Vital Signs Most Recent Imported Vital Signs: Most Recent Vital Signs Temp Pulse Resp BP Pulse Ox 36.9 C 65 18 94/54 L 99 09/30/21 18:09 09/30/21 18:09 09/30/21 18:09 09/30/21 18:09 09/30/21 18:09 Pain Score Most Recent Pain Score: Most Recent Pain Score Pain Level 4 09/30/21 18:09 Assessment Mental Status: Awake (Alert & Oriented to Patient Baseline) Airway and Respiratory Function: Patent airway with normal (patient baseline) respiratory exam Cardiovascular Function: Hemodynamically Stable Hydration Status: Adequately Hydrated Nausea & Vomiting: No Nausea or Vomiting Pain: Pain is tolerable per patient Peripheral Nerve Block: Patient did not receive a nerve block
--- NOTE | 2021-09-30 20:38 | ROE_ITS ---
Date of service: 09/30/21 Time of Service: 16:25 Operative Note Operative Note DATE OF PROCEDURE: 09/30/21 PRE-OP DIAGNOSIS: Traumatic wound right lower extremity POST-OP DIAGNOSIS: same PROCEDURE: Exploration, washout and partial closure of wound SURGEON: Francesca Early DATABASE DESIGN ANALYST: Matilde Scherer ANESTHESIA TYPE: General LMA/ETT Refer to Anesthesia Record ESTIMATED BLOOD LOSS: 15 PATHOLOGY: none sent COMPLICATIONS: None Patient was transported to: PACU Patient's condition: stable Implants: none Indications: Mr Nicholas is a pleasant 61 year old male who was helping out a friend out in the [place] when the tractor started to role. He tried to junp out of the way but was not fast enough and his right lower extremity was slized open by a hook on the front cement railroad car loader. He had an injury to that leg when he was a kid and had 3 screws put in and had a skin graft placed. There was apparently a lot of blood in the car when the ER nurse went to help him out of the car. He has not had a lot of bleeding in the ER. He is on Ticagrelor and aspirin for an MO he had 1 year ago. He also has a history of a heart stent. Xray of his lower extremity did not show a fracture. Findings: The soleus muscle was shreded There was a superficial artery that was transected. The posterior tibial artery and vein as well as the dorsalis pedis artery and vein were intact. Procedure Description: After informed consent was obtained the patient was taken to the operating room and placed in a supine position monitors were applied and he was placed under anesthesia and intubated. His right lower extremity was placed onto a pillow and prepped and draped circumferentially in a standard fashion. The wound was explored and irrigated with some saline at first. The soleus muscle was identified and was noted to be shredded in a couple of areas. The tibialis posterior tendon was identified as well as the flexor digitorum longus tendon and these were intact. There were good posterior tibial pulses as well as dorsalis pedis pulses. The Achilles tendon was palpated and was intact. The superior retinaculum was noted to be cut from the injury itself. There was a superficial vein that was severed and there was a big piece missing. Both ends were suture-ligated. The tiabial nerve was intact. Once the wound was irrigated with chlorhexidine wash the skin edges were trimmed to get to healthy tissue. The most inferior part of the wound was closed with interrupted sutures without tesion. The middle of the wound was also able to get re-approximated without tesnion using proline. The wound length was 15 cm. After closure there was a 3-5 cm open area at the superior end of the wound and a 2 x 2 cm opening towards the distal end. Here there was not enough skin left to close the defect. The open areas were covered with iodine soaked kerlix. The skin was cleaned and dried and the entire area was covered with ABD and secured with an ANDREI wrap. Sponge instrument and needles were correct at the end of the case. The patient was woken up, extubated and taken back to PACU in stable condition
== END 2021-09-30 18:48 | disposition home health service (06) ==
LOC: ER 14:10 → SUR 16:06
PROVIDERS: Emergency Provider Physician Assistant; PCP Family Medicine; Visit Provider Surgery
PROC: (CPT 12035; principal; 2021-09-30 14:00)
DX: S81.811A Laceration without foreign body, right lower leg, initial encounter (principal); W30.81XA Contact with agricultural transport vehicle in stationary use, initial encounter; I25.2 Old myocardial infarction; Z95.5 Presence of coronary angioplasty implant and graft; Z79.01 Long term (current) use of anticoagulants; Z79.82 Long term (current) use of aspirin; I10 Essential (primary) hypertension; E78.5 Hyperlipidemia, unspecified; Z20.822 Contact with and (suspected) exposure to COVID-19
CPT/HCPCS: 12035; 36415; 80048; 86850; 86900; 86901; 87635; 90471; 96361; 96365; 96374; 96375; 99285; 73590; 85025; J0131; J1100; J1885; J2405; J2540; J2704

== ENCOUNTER 2021-10-04 13:04 | Outpatient (REF) | payer MEDICAID, SELFPAY ==
[2021-10-04 13:14] LABS: Abs Immature Grans 0.02 10^3/uL (0.0-0.06); Absolute Basophil Count 0.04 10^3/uL (0.0-0.2); Absolute Eosinophil Count 0.09 10^3/uL (0.0-0.7); Absolute Lymphocyte Count 0.84 10^3/uL (1.2-3.4); Absolute Neutrophil Count 4.15 10^3/uL (1.2-6.7); Basophils % 0.7; Eosinophils % 1.6; HCT 28.7 % (40.0-50.0); HGB 9.4 g/dL (13.5-17.5); Immature Grans % 0.4; Lymphocytes % 14.9; MCH 30.3 pg (27.0-33.0); MCHC 32.8 % (32.0-36.0); MCV 92.6 fL (80-95); MPV 10.1 fL (8.0-11.0); Monocytes % 8.9; Neutrophils % 73.5; Nucleated RBC 0 %; Platelet Count 265 10^3/uL (130-400); RDW 14.2 % (11.8-14.1); RDW-SD 48.1 fL; WBC 5.64 10^3/uL (4.4-10.8)
[2021-10-04 13:22] LABS: Iron 25 ug/dL (65-175); Total Iron Binding Capacity 262 ug/dL (250-450); Transferrin Sat 10 % (20-55)
[2021-10-04 13:35] LABS: Ferritin 113 ng/mL (26-388)
== END 2021-10-04 13:05 | disposition home or self-care (01) ==
LOC: LBN 13:04
PROVIDERS: Surgery; PCP Family Medicine; Visit Provider Family Medicine
DX: C43.9 Malignant melanoma of skin, unspecified; E78.5 Hyperlipidemia, unspecified; I10 Essential (primary) hypertension
CPT/HCPCS: 82728; 83540; 83550; 85025

== ENCOUNTER 2021-10-09 12:20 | Emergency (ER) | payer MEDICAID, SELFPAY ==
[2021-10-09 12:25] VITALS: BP 156/87; PULSE 66; RESP 18; TEMP 37.1; O2SAT 96
--- NOTE | 2021-10-09 12:51 | W.ED.GENAD ---
Discharge Plan Disposition Patient Disposition: HOME Condition: Stable Discharge Details Clinical Impression: Postoperative wound cellulitis, Cellulitis of right leg Primary Care Provider: Gennaro Hess ED Provider: Justa Palomares Home Meds and New Rx's Prescriptions: Continued metaxalone [Skelaxin] 800 mg tablet 800 mg PO TID PRN (Reason: muscle pain) Qty: 60 RF: 3 atorvastatin 20 mg tablet 80 mg PO DAILY RF: 0 metoprolol succinate 25 mg tablet extended release 24 hr 25 mg PO DAILY Qty: 60 RF: 6 acetaminophen 325 mg capsule 975 mg PO ONCE PRNRF: 0 lisinopril 40 MG tablet 40 mg PO DAILY RF: 0 aspirin 81 mg tablet,delayed release (DR/EC) 81 mg PO DAILY RF: 0 Brilinta 90 mg tablet 90 mg PO BID Qty: 180 RF: 3 tramadol [Ultram] 50 mg tablet 50 mg PO Q6H PRNQty: 14 RF: 0 cephalexin 500 mg tablet 500 mg PO Q12H 14 Days Qty: 28 RF: 0 clindamycin HCl [Cleocin HCl] 300 mg capsule 300 mg PO Q6H 14 Days Qty: 56 RF: 0 Discharge Instructions Instructions: Cellulitis (ED) Additional Instructions: Be sure to keep the leg elevated and limit weightbearing as much as possible. Continue to take your antibiotics as directed until finished. Home health will follow up with you tomorrow for dressing changes. The plan is to continue wet-to-dry dressings at this time. Follow-up with your scheduled appointment with general surgery on Monday. Return immediately to the emergency department if you develop any fevers, worsening pain, redness or swelling. Referrals: Francesca Early MD [ [facility] STAFF PHYSICIAN] - Discharge Data Discharge Physician: Justa Palomares Medical Decision Making 61-year-old male who is 9 days status post traumatic wound to right leg with washout and repair in the ED now a few days status post placement of right leg wound VAC presents for concern for developing wound infection. Patient appears comfortable and nontoxic. He is afebrile. Skin around the room appears warm to touch with very minimal erythema and minimally pink granulation tissue. There may be early developing infection. He is already taking Keflex and clindamycin. Patient states he will not stay in the hospital for admission but is agreeable with lab work and a dose of IV antibiotics here. Case discussed with general surgery who reviewed images of patient's leg given with patient's permission. Recommend obtaining labs, and giving a dose of IV vancomycin and IV Zosyn. Labs reviewed. White blood cell count 6. Hemoglobin 8.9, slightly down trended from 9.4 recently, which was initially 12.2 pre-op last week. We will plan to recheck outpatient. Normal electrolytes. CRP 2. Patient skin appeared improved prior to discharge. Advised to continue his Keflex and clindamycin and will have home health evaluate patient tomorrow. Surgery recommends wet-to-dry dressings. He has a follow-up appoint with surgery on Monday. Skin markings placed around the edges of erythema. Patient advised to return here immediately with any fever, worsening pain or erythema. Medical Records Medical records reviewed: Yes I reviewed the patient's medical records. HPI General Mode of arrival: ambulatory. Date/Time Provider Initiated Documentation: 10/09/21 12:21. Limitations to Documentation: no limitations. Information obtained by: patient. HPI Narrative: Patient is a 61-year-old male who is 9 days status post sustaining a traumatic right leg wound after hit with a tractor and taken to the OR for washout and repair now status post placement of a wound VAC a few days ago by general surgery presents for concern for potential developing infection at wound site noted by home health today. 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 The wound VAC was removed by home health. It was reported that patient had a temp of 100. Patient denies chills. Patient states he has had a slight increase in pain recently and the area is warm to touch. Related Data Home Medications Medication Instructions Recorded Confirmed lisinopril 40 mg PO DAILY tab-cap 05/21/18 10/09/21 aspirin 81 mg tablet,delayed 81 mg PO DAILY 09/29/20 10/09/21 release atorvastatin 20 mg tablet 80 mg PO DAILY tab 12/18/20 10/09/21 metoprolol succinate 25 mg 25 mg PO DAILY #60 tab 12/18/20 10/09/21 tablet,extended release 24 hr ticagrelor 90 mg tablet 90 mg PO BID #180 tab 01/04/21 10/09/21 acetaminophen 325 mg capsule 975 mg PO ONCE PRN cap 03/25/21 10/09/21 cephalexin 500 mg PO Q12H 14 Days #28 tab 09/30/21 10/09/21 clindamycin HCl [Cleocin HCl] 300 mg PO Q6H 14 Days #56 cap 09/30/21 10/09/21 tramadol [Ultram] 50 mg PO Q6H PRN #14 tab 09/30/21 10/04/21 metaxalone 800 mg tablet 800 mg PO TID PRN #60 tab 10/04/21 10/04/21 Previous Rx's Medication Instructions Recorded metoprolol succinate 25 mg 25 mg PO DAILY #60 tab 12/18/20 tablet,extended release 24 hr ticagrelor 90 mg tablet 90 mg PO BID #180 tab 01/04/21 cephalexin 500 mg PO Q12H 14 Days #28 tab 09/30/21 clindamycin HCl [Cleocin HCl] 300 mg PO Q6H 14 Days #56 cap 09/30/21 tramadol [Ultram] 50 mg PO Q6H PRN #14 tab 09/30/21 metaxalone 800 mg tablet 800 mg PO TID PRN #60 tab 10/04/21 Allergies Allergy/AdvReac Type Severity Reaction Status Date / Time No Known Drug Allergies Allergy Unverified 10/09/21 12:29 General Stated Complaint: RashLesion EVA: 3 Review of Systems All systems reviewed & are unremarkable except as noted in HPI and below Constitutional Constitutional: Reports as per HPI, Denies chills and Denies fever(s) Eyes Eyes: Denies blurry vision ENT Ears, Nose, Mouth, and Throat: Denies dizziness, Denies sore throat and Denies throat swelling Cardiovascular Cardiovascular: Denies chest pain and Denies dyspnea Respiratory Respiratory: Denies cough and Denies dyspnea Gastrointestinal Gastrointestinal: Denies abdominal pain, Denies diarrhea and Denies vomiting Genitourinary Genitourinary: Denies hematuria and Denies dysuria Musculoskeletal Musculoskeletal: Denies back pain and Denies numbness Integumentary/Breasts Skin/Breast: Reports lesions and Denies rash Neurologic Neurologic: Denies dizziness, Denies localized weakness and Denies numbness Allergic/Immunologic Allergic/Immunologic: Denies throat swelling [facility] Active Problem List Traumatic open wound of right lower leg (Acute) Sensorineural hearing loss of both ears (Acute) Medical History Alcohol use Arthritis Basal cell carcinoma BPH (benign prostatic hyperplasia) HTN (hypertension) Hyperlipidemia Hypogonadism in male Melanoma Overactive bladder Psoriasis ST elevation myocardial infarction (STEMI) of inferior wall Surgical History History of coronary artery stent placement Social History Smoking/Tobacco Use Status: Former Tobacco Use Smoking risk assessment performed?: Yes Alcohol Intake: current Alcohol Intake frequency: holidays/special occasions only Drug use: Never Substance use type: does not use What type of physical activity do you participate in: walking and weight lifting Duration: 60-90 minutes/day Frequency: daily Do you feel safe at home: Yes Do you feel safe in your relationship?: Yes Exam Const General: cooperative, healthy appearing and no acute distress HENMT Head: normal to inspection Mouth: oral mucosae normal Eyes General: appearance normal, both eyes and all related structures Neck Neck: normal visual inspection Resp Effort & Inspection: normal respiratory effort and able to speak in complete sentences Cardio Rate: regular rate Skin General skin exam: no rashes or lesions noted Neuro General: patient alert, patient awake and patient oriented x3 Motor: muscle tone normal throughout Extrem Ankle/foot/toe images: 1. Sutures noted in place on wound to right medial distal leg. There are 2 openings within the wound where the previous wound VAC had been placed. The wet gauze dressings were removed and the tissue appears pink and mildly erythematous. The area is mildly tender to touch. There is no pus drainage. Other: Right DP/PT pulses intact. Psych Appearance: grossly normal Affect: normal affect Course Vital Signs Vital signs: Vital Signs Temperature 98.8 F 10/09/21 12:25 Pulse 66 10/09/21 12:25 Respiratory Rate 18 10/09/21 12:25 Blood Pressure 156/87 H 10/09/21 12:25 Pulse Oximetry 96 10/09/21 12:25 Temperature 98.8 F 10/09/21 12:25 Pulse 66 10/09/21 12:25 Respiratory Rate 18 10/09/21 12:25 Respiratory Effort Non-Labored 10/09/21 12:32 Blood Pressure 156/87 H 10/09/21 12:25 Blood Pressure Position Sitting 10/09/21 12:25 Pulse Oximetry 96 10/09/21 12:25 Oxygen Delivery Method Room Air 10/09/21 12:25 Oxygen Flow Rate 0 10/09/21 12:25
[2021-10-09 13:09] LABS: Abs Immature Grans 0.03 10^3/uL (0.0-0.06); Absolute Basophil Count 0.06 10^3/uL (0.0-0.2); Absolute Eosinophil Count 0.12 10^3/uL (0.0-0.7); Absolute Lymphocyte Count 1.16 10^3/uL (1.2-3.4); Absolute Monocyte Count 0.52 10^3/uL (0.1-0.8); Absolute Neutrophil Count 4.44 10^3/uL (1.2-6.7); Basophils % 0.9; Eosinophils % 1.9; HCT 27.6 % (40.0-50.0); HGB 8.9 g/dL (13.5-17.5); Immature Grans % 0.5; Lymphocytes % 18.3; MCH 30.2 pg (27.0-33.0); MCHC 32.2 % (32.0-36.0); MCV 93.6 fL (80-95); MPV 8.9 fL (8.0-11.0); Monocytes % 8.2; Neutrophils % 70.2; Nucleated RBC 0 %; Platelet Count 380 10^3/uL (130-400); RBC 2.95 10^6/uL (4.36-5.78); RDW-SD 47.5 fL; WBC 6.33 10^3/uL (4.4-10.8)
[2021-10-09] MEDS: Normal Saline 500 ML IV (13:16)
[2021-10-09] MEDS: PIPERACILLIN/TAZO 3.375 GM in Normal Saline 50 ML IVPB (13:17)
[2021-10-09 13:20] LABS: ALT 59 U/L (16-63); AST 25 U/L (15-37); Albumin 3.1 g/dL (3.4-5.0); Alkaline Phosphatase 98 U/L (46-116); Anion Gap 9.1 mmol/L (3-11); BUN 17 mg/dL (7-18); Bilirubin, Total 0.4 mg/dL (0.2-1.0); CO2 24.9 mmol/L (21.0-32.0); CREATININE 0.6 mg/dL (0.70-1.30); Calcium 8.7 mg/dL (8.5-10.1); Chloride 103 mmol/L (98-107); Glucose 100 mg/dL (74-106); Potassium 4.1 mmol/L (3.5-5.1); Sodium 137 mmol/L (136-145); Total Protein 6.4 g/dL (6.4-8.2)
[2021-10-09] MEDS: VANCOMYCIN 1,500 MG in Normal Saline 250 ML 166.6666 MG IVPB (13:48)
--- NOTE | 2021-10-09 15:15 | NUR.NOTE ---
Nursing Note: Wound dressing applied RLE, wet to dry per provider. Redness has marginally improved throughout IV ABX infusions. Dressing applied: 2x2 wet, ABD pad x 2 with kerlix x 2 secured with tape- same type dressing as removed applied by home health.
[2021-10-09 15:19] VITALS: BP 142/70; PULSE 60; RESP 18; TEMP 37.1; O2SAT 96
== END 2021-10-09 15:25 | disposition home or self-care (01) ==
PROVIDERS: Emergency Provider Physician Assistant; PCP Family Medicine
DX: T81.49XA Infection following a procedure, other surgical site, initial encounter (principal); L03.115 Cellulitis of right lower limb
CPT/HCPCS: 36415; 80053; 96361; 96365; 96367; 99284; 85025; 86140; J2543

== ENCOUNTER 2021-10-11 09:37 | Outpatient (REF) | payer MEDICAID, SELFPAY ==
[2021-10-11 09:44] LABS: Abs Immature Grans 0.04 10^3/uL (0.0-0.06); Absolute Basophil Count 0.08 10^3/uL (0.0-0.2); Absolute Eosinophil Count 0.17 10^3/uL (0.0-0.7); Absolute Lymphocyte Count 1.18 10^3/uL (1.2-3.4); Absolute Neutrophil Count 4.71 10^3/uL (1.2-6.7); Basophils % 1.2; Eosinophils % 2.5; HCT 28.9 % (40.0-50.0); HGB 9.6 g/dL (13.5-17.5); Immature Grans % 0.6; Lymphocytes % 17.7; MCH 30.9 pg (27.0-33.0); MCHC 33.2 % (32.0-36.0); MCV 92.9 fL (80-95); MPV 8.7 fL (8.0-11.0); Monocytes % 7.5; Neutrophils % 70.5; Nucleated RBC 0 %; Platelet Count 458 10^3/uL (130-400); RBC 3.11 10^6/uL (4.36-5.78); RDW 14.1 % (11.8-14.1); RDW-SD 47.9 fL; WBC 6.68 10^3/uL (4.4-10.8)
[2021-10-11 09:59] LABS: C-Reactive Protein 0.83 mg/dL (0.0-0.3)
== END 2021-10-11 09:38 | disposition home or self-care (01) ==
LOC: LBN 09:37
PROVIDERS: PCP Family Medicine; Visit Provider Surgery
DX: T81.49XA Infection following a procedure, other surgical site, initial encounter; L03.115 Cellulitis of right lower limb; S81.801A Unspecified open wound, right lower leg, initial encounter
CPT/HCPCS: 85025; 86140

== ENCOUNTER 2021-11-08 14:00 | Outpatient (REF) | payer MEDICAID, SELFPAY ==
[2021-11-08 10:39] LABS: Abs Immature Grans 0.01 10^3/uL (0.0-0.06); Absolute Basophil Count 0.03 10^3/uL (0.0-0.2); Absolute Eosinophil Count 0.37 10^3/uL (0.0-0.7); Absolute Lymphocyte Count 1.07 10^3/uL (1.2-3.4); Absolute Monocyte Count 0.55 10^3/uL (0.1-0.8); Absolute Neutrophil Count 4.13 10^3/uL (1.2-6.7); Basophils % 0.5; HCT 36.7 % (40.0-50.0); HGB 11.8 g/dL (13.5-17.5); Immature Grans % 0.2; Lymphocytes % 17.4; MCH 29.8 pg (27.0-33.0); MCHC 32.2 % (32.0-36.0); MCV 92.7 fL (80-95); MPV 9.7 fL (8.0-11.0); Monocytes % 8.9; Nucleated RBC 0 %; Platelet Count 270 10^3/uL (130-400); RBC 3.96 10^6/uL (4.36-5.78); RDW 13.7 % (11.8-14.1); RDW-SD 46.5 fL; WBC 6.16 10^3/uL (4.4-10.8)
== END 2021-11-08 14:01 | disposition home or self-care (01) ==
LOC: LBN 14:00
PROVIDERS: PCP Family Medicine; Visit Provider Surgery
DX: S81.801A Unspecified open wound, right lower leg, initial encounter (principal)
CPT/HCPCS: 85025